=== PATIENT | male | born 1955 | race Caucasian/White ===

== ENCOUNTER 2024-02-09 21:05 | Observation (INO) | payer MEDICARE, OTHER ==
[2024-02-09] MEDS ORDERED: Diazepam 10 MG/2 ML SYRINGE ONE (21:46)
[2024-02-09 22:33] LABS: #Basophils 0.01 10x3/uL (0.0-0.2); #Eosinphils 0.02 10x3/uL (0.0-0.5); #Monocytes 0.45 10x3/uL (0.0-1.1); #Neutrophils 8.14 10x3/uL (1.5-8.4); %Basophils 0.1 % (0.0-2.0); %Eosinophils 0.2 % (0.0-6.0); %Lymphocytes 6.6 % (18.0-47.0); %Monocytes 4.9 % (0.0-10.0); %Neutrophils 87.8 % (40.0-75.0); Hematocrit 41.1 % (38.8-50.0); Hemoglobin 13.9 g/dL (13.5-17.5); Mean Corpuscular HGB CONC 33.8 g/dL (32.0-36.0); Mean Corpuscular Hemoglobin 30.6 pg (27.0-33.0); Mean Corpuscular Volume 90.5 fL (81.2-95.1); Mean Platelet Volume 10.6 fL (7.4-10.4); Platelet Count 207 10x3/uL (150-450); RBC Distribution Width 12.3 % (11.5-14.5); Red Blood Cell (RBC) Count 4.54 10x6/uL (4.32-5.72); White Blood Cell (WBC) Count 9.3 10x3/uL (3.5-10.5)
[2024-02-09 22:35] LABS: ALT (SGPT) 24 U/L (8-55); AST (SGOT) 20 U/L (5-34); Alkaline Phosphatase 61 U/L (40-110); Anion Gap 17 mmol/L (10-20); BUN (Urea Nitrogen) 18 mg/dL (8.4-25.7); Bilirubin, Total 0.9 mg/dL (0.2-1.2); Calc. Creatinine Clearance 0 mL/min (70-130); Calcium 8.9 mg/dL (7.8-10.44); Carbon Dioxide 19 mmol/L (23-31); Chloride 105 mmol/L (98-107); Estimated GFR 72; Globulin 2.2 g/dL (2.4-3.5); Glucose 153 mg/dL (80-115); Potassium 4.5 mmol/L (3.5-5.1); Protein, Total 6.2 g/dL (5.8-8.1); Sodium 136 mmol/L (136-145)
[2024-02-09 22:41] LABS: Troponin I Less than 0.010 ng/mL (< 0.028)
[2024-02-09] MEDS ORDERED: Zolpidem Tartrate 5 MG TAB PO PRN (23:42)
[2024-02-09] MEDS ORDERED: Calcium Carbonate 500 MG ChewTAB PO PRN (23:42)
[2024-02-09] MEDS ORDERED: Senokot S 8.6-50 MG TAB PO PRN (23:42)
[2024-02-09] MEDS ORDERED: Acetaminophen 325 MG TAB PO PRN (23:42)
[2024-02-09] MEDS ORDERED: Ondansetron PF 4 MG/2 ML Vial IVP PRN (23:42)
[2024-02-10] MEDS ORDERED: Meclizine HCl 25 MG TAB ONE (00:08)
[2024-02-10] MEDS ORDERED: Famotidine/PF 20 mg/2ml Vial ONE (00:08)
[2024-02-10] MEDS: Meclizine HCl 12.5 MG TAB PO SCH (00:21)
[2024-02-10] MEDS: Famotidine/PF 20 mg/2ml Vial SLOW IVP SCH (00:21)
[2024-02-10] MEDS: Lactated Ringer's 500 ML IV SCH (00:21)
[2024-02-10 00:29] VITALS: BMI 27.5
[2024-02-10 05:09] LABS: Anion Gap 13 mmol/L (10-20); BUN (Urea Nitrogen) 16 mg/dL (8.4-25.7); Calc. Creatinine Clearance 87 mL/min (70-130); Calcium 9.2 mg/dL (7.8-10.44); Carbon Dioxide 26 mmol/L (23-31); Chloride 107 mmol/L (98-107); Estimated GFR 78; Glucose 111 mg/dL (80-115); Magnesium 2.2 mg/dL (1.6-2.6); Potassium 4.9 mmol/L (3.5-5.1); Sodium 141 mmol/L (136-145)
[2024-02-10] MEDS: Enoxaparin 40 MG (0.4 mL) SYRINGE SC SCH (10:09)
[2024-02-10] MEDS: Sertraline 25 MG TAB PO SCH (10:28)
[2024-02-10 13:39] LABS: Hemoglobin A1c 5.2 % (4.0-6.0)
[2024-02-10 15:52] VITALS: BP 136/74; TEMP 98.3
== END 2024-02-10 15:40 | disposition home or self-care (01) ==
LOC: CSHERS 21:05 → CSHERHOLD 23:45 → CSHTELE 02-10 09:07
PROVIDERS: ADMIT Student in an Organized Health Care Education/Training Program; ATTEND Nurse Practitioner Family
DX: R42 Dizziness and giddiness (principal); E86.0 Dehydration; I10 Essential (primary) hypertension; E78.5 Hyperlipidemia, unspecified; R73.9 Hyperglycemia, unspecified; I25.10 Atherosclerotic heart disease of native coronary artery without angina pectoris; F33.9 Major depressive disorder, recurrent, unspecified; Z98.890 Other specified postprocedural states; Z79.82 Long term (current) use of aspirin; Z79.899 Other long term (current) drug therapy; Z95.1 Presence of aortocoronary bypass graft; Z90.49 Acquired absence of other specified parts of digestive tract
CPT/HCPCS: 70450; 70551; 80048; 80053; 83036; 83735; 84484; 85025; 93005; 96361; 96374; 99284; J3360; J3490; J7120; 36415; 96375; G0378